=== PATIENT | male | born 1955 | race Caucasian/White ===

== ENCOUNTER 2020-06-11 06:01 | Observation (INO) ==
[~2020-06-11 06:01] MED LIST: ROPIVACAINE HCL/PF 100 MG, EPINEPHrine 0.2 MG, KETOROLAC TROMETHAMINE 30 MG in NORMAL S... IJ PRN; TRANEXAMIC ACID 1,000 MG in NORMAL SALINE 100 ML IV PRN; ceFAZolin SODIUM 1 GM VIAL IV PRN
[2020-06-11] MEDS ORDERED: ceFAZolin SODIUM 1 GM VIAL ONE (07:08)
[2020-06-11] MEDS: RINGER'S SOLUTION,LACTATED 1,000 ML IV PRN ×3 (07:47→10:30)
[2020-06-11] MEDS ORDERED: HYDROmorphone HCL 2 MG/ML VIAL IV PRN (09:03)
[2020-06-11] MEDS ORDERED: NALOXONE HCL 0.4 MG/ML VIAL IV PRN (09:03)
[2020-06-11] MEDS ORDERED: ONDANSETRON HCL/PF 2 MG/ML VIAL IV PRN ×2 (09:03→12:06)
[2020-06-11] MEDS ORDERED: PROCHLORPERAZINE EDISYLATE 5 MG/ML VIAL IV PRN (09:03)
--- NOTE | 2020-06-11 09:03 | ANES ---
Anesthesia Pre Procedure Eval Vitals/Labs: Last Vital Signs Temp 36.7 C 06/11/20 06:57 Pulse 65 06/11/20 06:57 Resp 18 06/11/20 06:57 BP 154/94 H 06/11/20 06:57 Pulse Ox 97 06/11/20 06:57 HOME MEDICATIONS hydrochlorothiazide 12.5 mg tablet 12.5 mg PO DAILY #90 tab 09/06/19 [Last Taken 06/11/20 03:30] cyclobenzaprine 10 mg tablet See Rx Instructions .ROUTE .COMPLEX #90 tablet 10/02/19 [Last Taken Unknown] amlodipine 10 mg tablet 10 mg PO DAILY #90 tab 12/07/19 [Last Taken 06/11/20 03:30] fenofibrate nanocrystallized 145 mg tablet 145 mg PO DAILY #90 tab 01/03/20 [Last Taken Unknown] losartan 100 mg tablet 100 mg PO DAILY #30 tab 01/03/20 [Last Taken 06/11/20 03:30] sertraline 100 mg tablet 200 mg PO DAILY #180 tab 03/26/20 [Last Taken Unknown] cholecalciferol (vitamin D3) 1,250 mcg (50,000 unit) capsule See Rx Instructions .ROUTE .COMPLEX #4 unknown measurement unit code: capsule 04/16/20 [Last Taken Unknown] aripiprazole 15 mg tablet See Rx Instructions .ROUTE .COMPLEX #90 unknown measurement unit code: tablet 04/18/20 [Last Taken Unknown] levothyroxine 75 mcg tablet See Rx Instructions .ROUTE .COMPLEX #90 unknown measurement unit code: tablet 05/15/20 [Last Taken Unknown] clonazepam 1 mg tablet See Rx Instructions PO BID PRN #90 tab 05/27/20 [Last Taken Unknown] Silver Sulfadiazine 1 applic TOPICAL PRN 06/11/20 [Last Taken Unknown] Allergies/Adverse Reactions: Allergies Allergy/AdvReac Type Severity Reaction Status Date / Time diphenhydramine HCl AdvReac skin Verified 06/11/20 07:02 [From Benadryl] crawling - Planned Procedure Planned Procedure: Right Total Knee Arthroplasty Medication List Reviewed:: Yes Allergies Verified: Yes Medical History (Last Reviewed 06/11/20 @ 08:56 by Reece Jackson CRNA) Primary osteoarthritis of right knee (Chronic) Osteoarthritis of right wrist (Chronic) Sprain of radiocarpal ligament of right wrist (Acute) Degenerative joint disease of right knee (Chronic) MCL sprain of right knee (Acute) Right knee pain (Acute) Right wrist pain (Acute) Cough productive of clear sputum (Chronic) Cough (Resolved) Hyperlipidemia with target LDL less than 100 (Chronic) Hypothyroidism (acquired) (Chronic) Nocturia more than twice per night (Chronic) Facial hemangioma (Chronic) 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) Insomnia due to mental disorder (Chronic) Fatigue (Chronic) due to MDD, Hypothyroidism, insomnia Major depression (Chronic) Thrombocytopenia (Chronic) Seizure disorder (Chronic) Osteoarthritis (Chronic) Insomnia (Chronic) Onset Date: ~06/12/09 Essential hypertension (Chronic) Onset Date: ~06/12/09 Improved with losartan/amlodipine combo Hyperlipidemia (Chronic) Onset Date: ~06/12/09 Hemangioma (Chronic) Onset Date: ~06/12/09 Left facial GERD (gastroesophageal reflux disease) (Chronic) Degenerative joint disease involving multiple joints (Chronic) Onset Date: ~06/12/09 Chronic pain syndrome (Chronic) Onset Date: ~07/04/16 Back pain Onset Date: ~06/12/09 Biliary dyskinesia Onset Date: ~2008 Colon perforation d/t constipation-rectosigmoid resection and end colostomy 08/2013 Family history of colon cancer Influenza vaccine refused Onset Date: ~11/25/18 Moderate single current episode of major depressive disorder Onset Date: ~07/27/17 arm fracture repair both forearm bones Anxiety Onset Date: Unknown Acute monoblastic leukemia (Resolved) Onset Date: ~10/12/15 Depression (Resolved) Inguinal hernia (Resolved) Onset Date: ~2008 Lg Rt Leukemia (Resolved) Onset Date: ~07/16/14 [facility] acute myloid Surgical History (Last Reviewed 06/11/20 @ 08:56 by Reece Jackson CRNA) Status post total left knee replacement H/O esophagogastroduodenoscopy Onset Date: ~2005 H/O exploratory laparotomy Onset Date: ~09/18/13 H/O hernia repair Onset Date: ~1998 H/O inguinal hernia repair Onset Date: ~10/18/09 right with mesh plug History of appendectomy Onset Date: ~09/18/13 History of colon resection Onset Date: ~09/18/13 colonostomy History of colonoscopy S/P colostomy takedown Onset Date: ~05/18/14 disc fusion Onset Date: ~1999 C-3 Family History (Last Reviewed 06/11/20 @ 08:57 by Reece Jackson CRNA) Grandfather No problems noted. Grandmother Colon cancer Mother Colon cancer - Family Anesthesia History Family History:: no untoward family reactions to anesthesia, no familial ble eding tendencies, no family history of clotting disorders, no family history of premature - Airway/Neck/Teeth Within Normal Limits:: Yes Teeth Condition: none Mallampatti Score: 3 Thyromental (T-M) distance: > 6 cm Mandibulo Hyoid distance: > 3 cm - Respiratory Respiratory Physical: lungs clear Smoking Status: Former smoker Discussed smoking cessation including day of surgery: No Sleep Apnea currently treated: No Sleep Apnea by current assessment: No Discussed Risks/Treatment of FRANKY: No - Cardiovascular Tolerate Activity: Fair Heart Sounds: S1 & S2, Regular - Gastrointestinal NPO since: mn - Anesthesia Assessment and Plan ASA Class: PS, III Anesthesia Type Plan: Block - Right ultrasound guided adductor canal nerve block for postop analgesia, Spinal
[2020-06-11] MEDS ORDERED: LIDOCAINE HCL 20 ML VIAL ONE (09:07)
[2020-06-11] MEDS ORDERED: fentaNYL CITRATE/PF 50 MCG/ML AMPUL ONE (09:08)
[2020-06-11] MEDS ORDERED: PROPOFOL VIAL IV ONE ×2 (09:08→11:03)
[2020-06-11] MEDS ORDERED: ONDANSETRON HCL/PF 2 MG/ML VIAL ONE (09:08)
[2020-06-11] MEDS ORDERED: BUPIVACAINE HCL/EPINEPHRINE 50 ML VIAL ONE (09:13)
[2020-06-11] MEDS ORDERED: MORPHINE SULFATE 2 MG/ML DISP.SYRIN IV PRN (12:06)
[2020-06-11] MEDS ORDERED: ACETAMINOPHEN 500 MG TABLET PO PRN (12:06)
[2020-06-11] MEDS ORDERED: MAG HYDROX/ALUMINUM HYD/SIMETH 30 ML UDC PO PRN (12:06)
[2020-06-11] MEDS ORDERED: oxyCODONE HCL/ACETAMINOPHEN 1 TAB TABLET PO PRN (12:06)
[2020-06-11] MEDS ORDERED: MAGNESIUM HYDROXIDE 30 ML UDC PO PRN (12:06)
[2020-06-11] MEDS ORDERED: clonazePAM 1 MG TABLET PO PRN (12:10)
--- NOTE | 2020-06-11 12:17 | OR ---
Operative Report - Dictated Report Narrative: Date: 06/11/2020 Preoperative diagnosis: Right knee degenerative joint disease. Postoperative diagnosis: Right knee degenerative joint disease. Procedure: Right total knee arthroplasty. Surgeon: Ti Reza M.D. Vault Worker: Jackson Espino PA-C provided a set of essential, skilled, educated hands that assisted in positioning, transfer, retraction, manipulation, irrigation, closure of wounds, and placement of dressings all of which could not be provided by the available surgical crew. Anesthesia: Spinal with regional block and local periarticular joint injection. Complications: None Specimens: Bone for disposal. Estimated blood loss: Minimal. Tourniquet time: 97 min at 300 mmHg Retained implants: Depuy Attune size 9 standard lugged cemented posterior stabilized femoral component. Size 8 rotating bearing cemented tibial platform. 9 by 7 millimeter posterior stabilized cross-linked tibial insert. 41 millimeter medialized patella button. Indications: Addy is a 64-year-old male who has been followed in my clinic for period of time with significant complaints of right knee pain consistent with arthritic changes. They had failed conservative measures including but not limited to activity modification, passage of time, medications, and other conser vative measures. Patient wished to proceed with surgical treatment. The risks, benefits, and alternatives were discussed in clinic. The risks of , blood clots, bleeding, infection, nerve/tendon blood vessel/ injury, malposition of components, intraoperative fracture, postoperative limited range of motion, persistent pain, failure of components, and need for additional procedures. Patient wished to proceed consent was obtained after answering all questions. Procedure: After marking the correct extremity on the floor, the patient was taken to the operating room. A timeout was performed. IV antibiotics consisting of 2 g of Ancef were administered prior to the procedure. A regional followed by spinal anesthetic was induced by anesthesia. on the operative table with all bony prominences well-padded. Noland catheter was placed and a bump was placed under the operative side buttock. SCDs and ALEX hose were utilized on the nonoperative leg. A well-padded tourniquet was applied to the operative thigh. The operative leg was then pre-scrubbed with alcohol prepped and draped in a standard sterile fashion. After exsanguinating the extremity with an Esmarch bandage, the tourniquet was inflated. After marking out the anterior knee for standard incision centered over the patella, the skin was incised and dissected down to the joint retinaculum. The joint retinaculum was marked out as well as the horizontal axis of the patella, and a standard medial parapatellar arthrotomy was then made. The most proximal aspect of the quadriceps tendon and the patella tendon insertion were protected from release. A partial synovectomy was performed as well as a resection of the infrapatellar fat pad. The distal femoral fat pad proximal to the trochlea was also resected using cautery. The soft tissues were elevated off the medial aspect of the proximal tibia using a Maurer elevator ensuring that we did not transect the medial collateral ligament. Upon initial evaluation range of motion was approximately 5 degrees to 120 degrees of flexion. There were signs of advanced arthrosis in the medial and patellofemoral joint spaces. There were large marginal osteophytes which were removed with a rongeur. The knee was hyperflexed and the patella was tucked laterally. Protecting the surrounding soft tissues with Homans, an entry drill was placed down the femoral canal using Whitesides line for guidance into the entry point. The intramedullary femoral alignment yasmany was utilized in order to cut the distal femur in 5 of valgus resecting 10 millimeters of bone. Next the distal femur was sized to a size 9. An anterior referencing guide was utilized to place the distal femoral cutting block in 3 of external rotation. This was pinned into place. The rotation was confirmed both visually and based on anatomic landmarks. The 4 in 1 cutting jig of the appropriate size was utilized in order to make all bony cuts. Retractors were utilized in order to protect surrounding soft tissues. This cut did not result in any excessive notching. We then cut the box centered over the distal femur. This allowed for resection of the anterior and posterior cruciate ligaments. I then turned my attention to the preparation of the tibia. Using an extra medullary tibial alignment yasmany, 4 millimeters of bone was resected off the medial articular surface. This was made perpendicular to the mechanical axis of the joint with the alignment yasmany centered over the ankle mortise. The alignment yasmany was parallel to the mechanical axis, centered over the medial one third of the tibial tubercle, paralleling the anterior surface of the tibia. We then turned our attention to the remaining meniscus and soft tissues. These were removed while protecting the surrounding ligaments and soft tissues. The marginal osteophytes off the anterior, posterior, medial, lateral aspects of the femur and tibia were removed. The tibia was sized out to a size 8. Next the tibia was drilled and punched in an externally rotated position as confirmed with a drop yasmany. Next the trial femur and a series of tibial inserts were utilized in order to allow for full extension and maximal flexion. It was found that a 7 millimeter insert gave the best range of motion and stability at multiple flexion points as well as at full extension there was less than 2 mm of gapping both medially and laterally. There was minimal anterior translation with the knee at 90 of flexion and no signs of being able to dislocate the knee. The patella was then prepared. The initial thickness was 27 millimeters. This was reamed down to 16 millimeters parallel to the anterior surface of the patella. It was sized out to a size 41 mm medialized patella button. This was then drilled and trialed. Without any medial restraint the patella tracked appropriately and did not sublux or dislocate. At this point, it was felt these were the appropriate sized implants and all trials were removed. The standard periarticular joint injection consisting of ropivacaine, Toradol, and epinephrine were injected into the periarticular joint tissues. The bony surfaces were thoroughly irrigated with a pulsatile-suction saline irrigation device. A bone plug from the prior resected anterior chamfer cut was placed into the drill hole at the distal femur. The bony surfaces were then dried in preparation for placement of the implants. The cement was vacuum mixed per the hotel and dining room cashier's instructions. The cement was placed on the dry bony surfaces and posterior aspect of the implants. The implants were impacted into place, removing all extruded cement. At this point anesthesia administered tranexamic acid per protocol intravenously. The knee was placed in extension with axial loading with the trial insert while the cement cured. A dilute 0.35% betadyne-saline solution was used to irrigate the knee and allowed to sit in the knee while the cement cured. Once the cement cured, all remaining extruded ceme nt was removed. The knee was placed through a range of motion with the trial insert to ensure appropriate range of motion and stability. Final range of motion was approximately 0 to 125 degrees. The knee was again thoroughly irrigated with pulsatile saline lavage. The final polyethylene insert was then impacted into place ensuring no retained soft tissues. The remaining periarticular joint injection was injected. The knee was then packed with lap sponges which were soaked with dilute betadyne solution and the tourniquet was let down. Pressure was held for approximately 2 minutes and then hemostasis was obtained using electrocautery to coagulate any bleeding vessels. The knee was then placed over a triangle and the arthrotomy was closed with interrupted #1 Vicryl after thoroughly irrigating the joint. The deep and subcutaneous tissues were closed with interrupted 0 and 3-0 Vicryl respectively. Skin was closed with a running subcutaneous 3-0 Monocryl and Prineo dressing. 4 x 4's, ABD, Sof-Rol, and a full leg Cristi wrap were applied. All sponge, needle, blade, and instrument counts were correct prior to closing the wounds. Postoperative condition: The patient was awoken and transferred to the postanesthesia care unit in stable condition. Plan is to be admitted to the inpatient medical/surgical floor postoperatively for 24 hours of IV antibiotics, physical therapy, occupational therapy, and medical co-management. Patient will be weightbearing as tolerated with range of motion as tolerated. DVT prophylaxis will be with SCDs, ALEX hose, and pharmacological anticoagulation. Anticipated hospital stay is approximately 2-4 days.
--- NOTE | 2020-06-11 12:34 | ANES ---
Post Anesthesia Discharge - Transfer of Care Transfer of Care handoff given to nurse: Yes - Discharge from PACU Discharge from PACU when meets criteria: Yes - Discharge to ASU Discharge to ASU-no complications/pt stable: Yes
--- NOTE | 2020-06-11 12:36 | ANES ---
Post Anesthesia Assessment - Vital Signs Vitals: Last Vital Signs Temp 36.7 C 06/11/20 06:57 Pulse 65 06/11/20 06:57 Resp 18 06/11/20 06:57 BP 154/94 H 06/11/20 06:57 Pulse Ox 97 06/11/20 06:57 Airway Patency: Normal - Mental Status Level Of Consciousness: Awake - Pain Level Pain Score: 0 - N/V Assessment Nausea/Vomiting Presence: None Dehydration:: No
--- NOTE | 2020-06-11 12:36 | ANES ---
Anesthesia Procedure Note Procedure Note: ANESTHESIA PROCEDURE NOTE Date of Procedure: 06/11/2020. Time of procedure: 0900. Performed by: Reece Jackson CRNA Sales Review Clerk: None. Preprocedure diagnosis: Right knee degenerative joint disease. Post procedure diagnosis: Same. Procedure: Right ultrasound guided adductor canal block for postoperative analgesia. Indications: The patient is a 64-year-old male, requesting right ultrasound- guided abductor canal nerve block for postoperative analgesia related to right total knee arthroplasty. Findings: See below. Details of the procedure: The tissue over the intended target site was cleansed with ChloraPrepand draped in a sterile fashion. 2 ml Lidocaine 1 % was infiltrated to the skin and subcutaneous tissue at the intended target site. Under sterile technique and ultrasound guidance a 20-gauge block needle was inserted through the right sartorius muscle to the saphenous nerve just anterior and medial to the superficial femoral artery and vein. 15 mL's of 0.5% bupivacaine was injected after negative aspiration for blood. Needle tip and spread of local anesthetic surrounding the saphenous nerve was observed throughout the injection with real time ultrasound visualization. The needle was then removed intact. No complications were noted. The images were retained in the Hospital medical database. EBL: Minimal. Fluids: N/A. Specimen: N/A. Post procedure condition: The patient tolerated the procedure well. No complications were noted. Thank you for this consultation. Reece Jackson CRNA
[2020-06-11] MEDS: NORMAL SALINE 1,000 ML IV PRN ×2 (12:53→20:11)
[2020-06-11] MEDS: ARIPiprazole 5 MG TABLET PO SCH (13:17)
[2020-06-11] MEDS: oxyCODONE HCL/ACETAMINOPHEN 1 TAB TABLET PO PRN ×2 (16:03→20:06)
[2020-06-11] MEDS: ceFAZolin SODIUM/DEXTROSE,ISO 2 GM/50 ML BAG IV SCH ×2 (16:04→23:14)
[2020-06-11] MEDS ORDERED: SENNOSIDES/DOCUSATE SODIUM 1 TAB TABLET PO SCH (21:00)
[2020-06-12] MEDS: oxyCODONE HCL/ACETAMINOPHEN 1 TAB TABLET PO PRN ×4 (03:32→16:42)
[2020-06-12] MEDS ORDERED: LEVOTHYROXINE SODIUM 75 MCG TABLET PO SCH (07:00)
[2020-06-12] MEDS: ceFAZolin SODIUM/DEXTROSE,ISO 2 GM/50 ML BAG IV SCH (07:03)
[2020-06-12] MEDS ORDERED: ARIPiprazole 10 MG TABLET PO ONE (08:43)
[2020-06-12] MEDS: ARIPiprazole 5 MG TABLET PO SCH (08:49)
[2020-06-12] MEDS ORDERED: SERTRALINE HCL 100 MG TABLET PO SCH (09:00)
[2020-06-12] MEDS ORDERED: amLODIPine BESYLATE 10 MG TABLET PO SCH (09:00)
[2020-06-12] MEDS ORDERED: LOSARTAN POTASSIUM 50 MG TABLET PO SCH (09:00)
[2020-06-12] MEDS ORDERED: FENOFIBRATE,MICRONIZED 134 MG CAPSULE PO SCH (09:00)
[2020-06-12] MEDS ORDERED: CYCLOBENZAPRINE HCL 10 MG TABLET PO SCH (09:00)
[2020-06-12] MEDS ORDERED: HYDROCHLOROTHIAZIDE 12.5 MG CAPSULE PO SCH (09:00)
[2020-06-12] MEDS ORDERED: ENOXAPARIN SODIUM 40 MG/0.4 ML SYRG SC SCH (11:06)
--- NOTE | 2020-06-12 16:02 | DS ---
(1) Status post total right knee replacement using cement Problem: Acute Date of Discharge:: 06/12/20 Hospital Course: -64-year-old male postop day 1 status post right total knee arthroplasty. Patient is an uncomplicated stay in the hospital. He was admitted status post right total knee arthroplasty, he has met all goals with physical therapy. He is returned to a p.o. diet without significant complication. Patient pain is well controlled with p.o. pain medication. Patient has had no other significant complications in his stay. Exam today reveals right lower extremity--> now dressing in place, sensation intact light touch, diffuse mild tenderness about the right knee, significant erythema or drainage, capillary refill brisk. Patient will otherwise continue with following recommendations: -PT/OT progress as tolerated per protocol, assistive device PRN -P.o. diet as tolerated -P.o. pain medication PRN -DVT prophylaxis, ALEX hose knee-high bilateral, aspirin 325 mg twice daily for 7 days followed by 325 mg aspirin daily for 6 weeks -Maintain pernio dressing in place -Disposition: Discharge home, follow-up with orthopedics outpatient clinic at 2 weeks postop, begin outpatient PT/OT Procedures Performed: see notes below List Procedures: status post right total knee arthroplasty Results and Findings: Lab Pending Results 06/11/20 06:00: SARS-CoV-2 (PCR) Not detected Discharge Location: Home Disposition: Home self-care Condition: Stable Discharge Activity: Activity as tolerated, Weight bearing - Assistive device PRN Discharge Diet: General/regular food Referrals: Ti Reza MD [Staff Physician] - 06/26/20 9:00 am Torito Canas DO [Primary Care Provider] - Problem Oriented Discharge Instructions to Patient/Family: Total Knee Replacement, Care After, [id number] Print Language (Paraguayan or Hungarian Available): Paraguayan Additional Patient Instructions (free text): Physical Therapy at [facility] outpatient rehab department on June 13 at 10:15. Follow up Orthopedic office appointment on WednesdayJune 26 at 9:00am. Prescriptions (Any new or edited meds): Aspirin 325 mg PO BID #60 tab Transmission Status: Pending to [facility] #[id number] oxyCODONE HCL/ACETAMINOPHEN [Percocet 5 MG/325 MG] 1 - 2 tab PO Q4H PRN #60 tab PRN Reason: Severe Pain (Pain Scale 7-10) Transmission Status: Received by [facility] #[id number] Complete Home Medications List: Complete Home Medication List: hydrochlorothiazide 12.5 mg tablet 12.5 mg PO DAILY #90 tab 09/06/19 cyclobenzaprine 10 mg tablet See Rx Instructions .ROUTE .COMPLEX #90 tablet 10/02/19 amlodipine 10 mg tablet 10 mg PO DAILY #90 tab 12/07/19 fenofibrate nanocrystallized 145 mg tablet 145 mg PO DAILY #90 tab 01/03/20 losartan 100 mg tablet 100 mg PO DAILY #30 tab 01/03/20 sertraline 100 mg tablet 200 mg PO DAILY #180 tab 03/26/20 cholecalciferol (vitamin D3) 1,250 mcg (50,000 unit) capsule See Rx Instructions .ROUTE .COMPLEX #4 unknown measurement unit code: capsule 04/16/20 aripiprazole 15 mg tablet See Rx Instructions .ROUTE .COMPLEX #90 unknown measurement unit code: tablet 04/18/20 levothyroxine 75 mcg tablet See Rx Instructions .ROUTE .COMPLEX #90 unknown measurement unit code: tablet 05/15/20 clonazepam 1 mg tablet See Rx Instructions PO BID PRN #90 tab 05/27/20 Silver Sulfadiazine 1 applic TOPICAL PRN 06/11/20 Aspirin 325 mg PO BID #60 tab 06/12/20 oxyCODONE HCL/ACETAMINOPHEN [Percocet 5 MG/325 MG] 1 - 2 tab PO Q4H PRN #60 tab 06/12/20 Amb Orders for Discharge: PT Evaluation and Treatment* Location: None Selected Forms: Patient Portal Registration
[2020-06-12 17:08] VITALS: BP 114/62
== END 2020-06-12 16:45 | disposition home or self-care (01) ==
LOC: SUR 06:01 → MS 06:01
PROVIDERS: ADMIT Orthopaedic Surgery; ATTEND Orthopaedic Surgery
CPT/HCPCS: 73560; 96365; 96366; 97110; 97116; 97161; 97165; C9803; G0378; J2405